=== PATIENT | female | born 1965 | race Caucasian/White ===

== ENCOUNTER 2016-04-11 10:17 | Emergency (ER) | payer SELFPAY ==
[~2016-04-11] VITALS: Ht 157.5 cm; Wt 70.0 kg
[2016-04-11 10:25] VITALS: BP 113/63; PULSE 78; RESP 12; TEMP 98.6
--- NOTE | 2016-04-11 15:35 | PD ---
HPI Chief Complaint: Headache Time Seen by Provider: 15:24 Travel History International Travel<30 days: No Contact w/Intl Traveler<30days: No Traveled to known affect area: No History of Present Illness HPI 51-year-old woman presents to the emergency department complaining of headache, bilateral frontal, behind her eyes, associated with foggy/smokey vision, halos. She is worried because she has narrow angle glaucoma. [place], [place] Medicaid, but has not followed up with her eye doctor here. She's not been able to establish follow-up in my doctor. She takes latanoprost. She was told she needed surgery for her eyes because of her eye pressures. She is worried with her worsening headache and visual changes that she may be having acute glaucoma. 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 Methadone (Methadone HCl) 10 Mg Tab 60 Mg PO DAILY Review of Systems Except as stated in HPI: all other systems reviewed are Neg Physical Exam Narrative GENERAL: Well-appearing 50 year-old woman, no acute distress. SKIN: Warm and dry. CARDIOVASCULAR: Warm and well perfused. RESPIRATORY: Normal rate and effort. NEUROLOGICAL: Awake and alert. No gross deficits. EYES: Normal-appearing bilateral eyes, no scleral injection. Pupils are little bit large, sluggishly responsive to light. Some photophobia. Funduscopic exam completed, optic cup looks a little bit enlarged. Slit lamp exam was unremarkable. Intraocular pressure was measured at 18 on the right, 23 on the left by Casey-Pen. Data Data Last Documented VS Vital Signs Date Time Temp Pulse Resp B/P Pulse Ox O2 Delivery O2 Flow Rate FiO2 04/11/16 10:25 98.6 78 12 113/63 Room Air Orders Proparacaine 0.5% Opth Soln (Alcaine 0.5 (04/11/16 15:45) [facility] Medical Decision Making Medical Screen Exam Complete: Yes Emergency Medical Condition: Yes Interpretation(s) 51-year-old woman, symptoms of worsening subacute glaucoma, pressures are 18 and the right, 23 in the left, visual acuity is as noted. She needs urgent follow-up with ophthalmology. We'll put mandatory referral in to Dr. Torres. Differential Diagnosis Headache, chronic glaucoma, acute glaucoma, migraine, other Narrative Course Medical decision making 51-year-old woman, seen initially in triage, concern for glaucoma. Symptoms ongoing for several days. We'll moved to probable pod, I room, I exam, check pressures, reassess. Diagnosis Primary Impression: Headache Qualified Code: R51 - Nonintractable episodic headache, unspecified headache type Referrals: Tarsha Torres MD 3 days Patient Instructions: General Instructions Additional Instructions: Call Dr. Torres's office for the next available appointment. Continue your eye drops. Return to the emergency department for any worsening symptoms. Med/Other Pt SpecificInfo: No Change to Meds Disposition: 01 DISCHARGE HOME Condition: Stable Jasmeet Shirley MD Apr 11, 2016 15:35
[2016-04-11] MEDS ORDERED: PROPARACAINE HCL 0.5% OPHT SOLN 15 ML BTL EACH EYE ONE (15:45)
[2016-04-11] MEDS ORDERED: LATA0.002 EACH EYE (15:48)
[2016-04-11] MEDS ORDERED: METH10TA PO (15:48)
[2016-04-12] MEDS ORDERED: LUMI0.01 EACH EYE (14:16)
[2016-05-15] MEDS ORDERED: COMB0.2S EACH EYE (09:31)
[2016-05-15] MEDS ORDERED: PRED1SUS EACH EYE (09:31)
== END 2016-04-11 18:03 | disposition home or self-care (01) ==
LOC: NEPB 10:17
DX: R51 Headache (principal); H40.20X0 Unspecified primary angle-closure glaucoma, stage unspecified; G89.29 Other chronic pain; Z72.0 Tobacco use
CPT/HCPCS: 99284

== ENCOUNTER → 2016-04-25 | Outpatient (CLI) | payer SELFPAY ==
[~2016-04-25] MED LIST: BALANCED SALT SOLN OPHT IRRIG 15 ML BTL ONE; BRIMONIDINE TARTRATE 0.15% OPHT SOLN 5 ML BTL ONE; COMB0.2S EACH EYE; DIAZEPAM 5 MG TAB ONE; HYPROMELLOSE 0.3 % OPTH GEL 10 GM (0.34 FL OZ) TUBE ONE; LUMI0.01 EACH EYE; METH10TA PO; PILOCARPINE HCL 2% OPHT SOLN 15 ML BTL ONE; PRED1SUS EACH EYE; TETRACAINE 0.5% OPTH SOLN 4 ML BTL ONE
== END ==
LOC: PHSDC 09:08
PROVIDERS: ATTEND Ophthalmology
DX: H40.20X0 Unspecified primary angle-closure glaucoma, stage unspecified (principal); Z83.511 Family history of glaucoma

== ENCOUNTER → 2016-05-02 | Outpatient (CLI) | payer SELFPAY ==
[~2016-05-02] MED LIST changes: -HYPROMELLOSE 0.3 % OPTH GEL 10 GM (0.34 FL OZ) TUBE ONE; +PROPARACAINE HCL 0.5% OPHT SOLN 15 ML BTL ONE; -TETRACAINE 0.5% OPTH SOLN 4 ML BTL ONE
== END ==
LOC: PHSDC 08:46
PROVIDERS: ATTEND Ophthalmology
DX: H40.032 Anatomical narrow angle, left eye (principal)

== ENCOUNTER 2016-10-25 19:50 | Emergency (ER) | payer OTHER ==
[~2016-10-25 19:50] MED LIST changes: +ASPI1POW6 PO; -BALANCED SALT SOLN OPHT IRRIG 15 ML BTL ONE; -BRIMONIDINE TARTRATE 0.15% OPHT SOLN 5 ML BTL ONE; +BRIN1SUS2 EACH EYE; -COMB0.2S EACH EYE; +CYCL1TAB29 PO; -DIAZEPAM 5 MG TAB ONE; +IBUP200C PO; +MELO-1 PO; +NEUR100C PO; -PILOCARPINE HCL 2% OPHT SOLN 15 ML BTL ONE; -PROPARACAINE HCL 0.5% OPHT SOLN 15 ML BTL ONE; +TYLE325T PO
[2016-10-25 19:52] VITALS: BP 128/68; PULSE 104; RESP 16; TEMP 98.3; O2SAT 98
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
[2016-10-26] MEDS ORDERED: AUGM875T3 PO (05:50)
== END 2016-10-26 02:32 | disposition left against medical advice (07) ==
LOC: NED 19:50
DX: J34.89 Other specified disorders of nose and nasal sinuses (principal); V49.9XXA Car occupant (driver) (passenger) injured in unspecified traffic accident, initial encounter; Z53.21 Procedure and treatment not carried out due to patient leaving prior to being seen by health care provider
CPT/HCPCS: 99281

== ENCOUNTER 2016-10-26 03:16 | Emergency (ER) | payer OTHER ==
[~2016-10-26] VITALS: Ht 157.5 cm; Wt 59.0 kg
[~2016-10-26 03:16] MED LIST changes: -PRED1SUS EACH EYE
[2016-10-26 03:17] VITALS: BP 107/69; PULSE 78; RESP 18; TEMP 97.9; O2SAT 98
[2016-10-26] MEDS ORDERED: MORPHINE SULFATE 4 MG/ML INJ IV PUSH ONE (04:15)
[2016-10-26] MEDS ORDERED: SODIUM CHLORIDE 0.9% FLUSH 10 ML FLUSH IV FLUSH PRN (04:15)
[2016-10-26] MEDS ORDERED: METOCLOPRAMIDE HCL 10 MG/2 ML VIAL IV PUSH ONE (04:15)
[2016-10-26] MEDS ORDERED: SODIUM CHLOR 0.9% 1000 ML INJ 1,000 ML IV ONE (04:15)
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
[2016-10-26 05:28] LABS: BASOPHIL % 0.5 % (0.0-2.0); EOSINOPHIL # 0.3 TH/MM3 (0-0.4); EOSINOPHIL % 3.3 % (0.0-4.0); HEMO FLAGS DIFF FINAL; LYMPH % 15.4 % (9.0-44.0); LYMPHOCYTE # 1.6 TH/MM3 (1.0-4.8); MEAN CELL VOLUME 86.9 FL (80.0-100.0); MEAN CORPUSCULAR HGB CONC 33.4 % (32.0-36.0); MONO % 4.4 % (0.0-8.0); NEUT % 76.4 % (16.0-70.0); PLATELET COUNT 293 TH/MM3 (150-450); RED BLOOD COUNT 5.06 MIL/MM3 (4.00-5.30); RED CELL DISTRIBUTION WIDTH 13.5 % (11.6-17.2); WHITE BLOOD COUNT 10.4 TH/MM3 (4.0-11.0)
[2016-10-26] MEDS ORDERED: AUGM875T3 PO (05:50)
[2016-10-26 05:57] LABS: INTERNATIONAL NORMALIZED RATIO 0.9 RATIO; PROTHROMBIN TIME - PATIENT 10.2 SEC (9.8-11.6)
[2016-10-26 05:58] LABS: APTT (PATIENT) 26.5 SEC (24.3-30.1)
[2016-10-26] MEDS ORDERED: AMOXICILLIN/CLAVULANATE K 875 MG TAB PO ONE (06:00)
[2016-10-26 09:20] VITALS: BP 124/68
== END 2016-10-26 09:46 | disposition home or self-care (01) ==
LOC: NEPE 03:16
DX: J01.00 Acute maxillary sinusitis, unspecified (principal); R04.0 Epistaxis; F17.200 Nicotine dependence, unspecified, uncomplicated
CPT/HCPCS: 70450; 70486; 85025; 85610; 85730; 96361; 96374; 96375; 99285; J2270; J2765; J7030

== ENCOUNTER 2016-11-08 13:12 | Emergency (ER) | payer OTHER ==
[~2016-11-08] VITALS: Ht 157.5 cm; Wt 60.0 kg
[~2016-11-08 13:12] MED LIST changes: +AUGM875T3 PO
[2016-11-08 13:21] VITALS: BP 124/64; PULSE 92; RESP 24; TEMP 97.7; O2SAT 97
[2016-11-08] MEDS ORDERED: SODIUM CHLOR 0.9% 1000 ML INJ 1,000 ML IV ONE (13:45)
[2016-11-08] MEDS ORDERED: SODIUM CHLORIDE 0.9% FLUSH 10 ML FLUSH IVF PRN (13:45)
[2016-11-08] MEDS ORDERED: HYDROmorphone HCL PF 1 MG/ML VIAL IVS ONE (13:45)
[2016-11-08] MEDS ORDERED: ONDANSETRON HCL 4 MG/2 ML VIAL IVP ONE (13:45)
[2016-11-08] MEDS ORDERED: TETRACAINE 0.5% OPTH SOLN 15 ML BTL EACH EYE ONE (13:45)
[2016-11-08 14:03] LABS: AUTOMATED NEUTROPHIL # 8.7 TH/MM3 (1.8-7.7); BASOPHIL % 0.4 % (0.0-2.0); EOSINOPHIL # 0.3 TH/MM3 (0-0.4); EOSINOPHIL % 2.7 % (0.0-4.0); HEMATOCRIT 38.3 % (35.0-46.0); HEMO FLAGS DIFF FINAL; LYMPH % 13.9 % (9.0-44.0); LYMPHOCYTE # 1.6 TH/MM3 (1.0-4.8); MEAN CELL VOLUME 86.9 FL (80.0-100.0); MEAN CORPUSCULAR HEMOGLOBIN 28.4 PG (27.0-34.0); MEAN CORPUSCULAR HGB CONC 32.7 % (32.0-36.0); PLATELET COUNT 266 TH/MM3 (150-450); RED CELL DISTRIBUTION WIDTH 13.4 % (11.6-17.2); WHITE BLOOD COUNT 11.2 TH/MM3 (4.0-11.0)
[2016-11-08 14:21] LABS: BICARBONATE 27.6 MEQ/L (21.0-32.0)
[2016-11-08] MEDS ORDERED: CLIN1CAP5 PO (14:33)
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
[2016-11-08 15:00] VITALS: BP 106/56; PULSE 88; RESP 21; O2SAT 98
[2016-11-08] MEDS ORDERED: HYDR-3533 PO (15:13)
== END 2016-11-08 15:48 | disposition home or self-care (01) ==
LOC: NEPC 13:12
DX: L03.211 Cellulitis of face (principal); J32.1 Chronic frontal sinusitis; H40.219 Acute angle-closure glaucoma, unspecified eye; F17.200 Nicotine dependence, unspecified, uncomplicated
CPT/HCPCS: 80048; 85025; 96361; 96374; 96375; 99284; J1170; J2405; J7030